=== PATIENT | female | born 1965 | race Caucasian/White ===

== ENCOUNTER 2022-12-29 11:44 | Emergency (ER) | payer MEDICAID ==
[~2022-12-29] VITALS: Ht 160 cm; Wt 74.0 kg
[2022-12-29 11:49] VITALS: BP 172/80
[2022-12-29] MEDS ORDERED: ASPIRIN 81MG TABLET PO ONE (14:30)
[2022-12-29 14:57] LABS: BASOPHILS % 1.1 % (0.0-2.0); EOSINOPHILS % 3.5 % (0.0-5.0); HEMOGLOBIN. 14.8 g/dL (12.0-16.0); LYMPHOCYTES % 24.8 % (20.0-50.0); MEAN CORPUSCULAR VOLUME 90.2 fL (81.0-99.0); MEAN PLATELET VOLUME 8.6 fl (7.4-10.4); MONOCYTES % 7.6 % (2.0-8.0); PLATELET 374 x1000/uL (130-400); RED BLOOD CELL COUNT 4.77 mill/uL (4.2-5.4)
[2022-12-29 15:27] LABS: CHLORIDE 104 mEq/L (98-107)
[2022-12-29] MEDS ORDERED: NITROGLYCERIN OINT 1GM/INCH UDPKT TD ONE (15:30)
[2022-12-29] MEDS ORDERED: NITR0.4T SL (16:09)
[2022-12-29] MEDS ORDERED: ACET-2708 MT (16:09)
== END 2022-12-29 16:30 | disposition home or self-care (01) ==
LOC: ER 11:44
DX: R07.89 Other chest pain (principal); E11.9 Type 2 diabetes mellitus without complications; I10 Essential (primary) hypertension; M54.12 Radiculopathy, cervical region
CPT/HCPCS: 36415; 71045; 80053; 83880; 84484; 85025; 93005; 99285; Z7610

== ENCOUNTER 2024-03-08 15:13 | Emergency (ER) | payer MEDICAID ==
[~2024-03-08] VITALS: Ht 157.5 cm; Wt 66.0 kg
[~2024-03-08 15:13] MED LIST: ACET-2708 MT; NITR0.4T SL
[2024-03-08 15:29] VITALS: TEMP 97.9; O2SAT 100
[2024-03-08 16:07] LABS: BASOPHILS % 0.5 % (0.0-2.0); EOSINOPHILS % 2.8 % (0.0-5.0); HEMATOCRIT. 42.3 % (36.0-48.0); HEMOGLOBIN. 14.7 g/dL (12.0-16.0); LYMPHOCYTES % 8.9 % (20.0-50.0); MEAN CORPUSCULAR HEMOGLOBIN 32.2 pg (28.0-32.0); MEAN CORPUSCULAR HGB CONC 34.7 g/dL (31.0-37.0); MEAN CORPUSCULAR VOLUME 92.8 fL (81.0-99.0); MONOCYTES % 8.5 % (2.0-8.0); NEUTROPHILS % 79.3 % (40.0-76.0); PLATELET 313 x1000/uL (130-400); RED BLOOD CELL COUNT 4.55 mill/uL (4.2-5.4); RED CELL DISTRIBUTION WIDTH 13.2 % (11.6-14.6); WHITE BLOOD COUNT 7.6 x1000/uL (4.5-11.0)
[2024-03-08 16:09] LABS: CHLORIDE 105 mEq/L (98-107); POTASSIUM 3.8 mEq/L (3.5-5.1); SODIUM 138 mEq/L (136-145)
[2024-03-08 16:10] LABS: CALCIUM 9.8 mg/dL (8.7-10.4); CARBON DIOXIDE 26 mEq/L (21-32)
[2024-03-08 16:15] LABS: CREATININE 0.7 mg/dL (0.6-1.0); GLUCOSE 149 mg/dL (70-105); UREA NITROGEN BLOOD 15 mg/dL (9-23)
[2024-03-08 16:17] LABS: ALANINE AMINOTRANSFERASE 141 IU/L (10-49); ASPARTATE AMINOTRANSFERASE 219 IU/L (<34)
[2024-03-08 16:18] LABS: BILIRUBIN TOTAL 0.9 mg/dL (0.1-1.0)
[2024-03-08] MEDS: FAMOTIDINE 20MG TABLET PO ONE (19:02)
[2024-03-08 20:26] LABS: TROPONIN I HIGH SENSITIVITY 5 ng/L (3.0-34)
[2024-03-08] MEDS ORDERED: OMEP20CA14 MT (20:48)
[2024-03-08 21:47] VITALS: BP 138/84; PULSE 80; RESP 18
== END 2024-03-08 21:54 | disposition home or self-care (01) ==
LOC: ER 15:13
DX: K76.0 Fatty (change of) liver, not elsewhere classified (principal); R10.13 Epigastric pain; R74.01 Elevation of levels of liver transaminase levels; E11.9 Type 2 diabetes mellitus without complications; E03.8 Other specified hypothyroidism; Z98.890 Other specified postprocedural states
CPT/HCPCS: 36415; 71045; 76705; 80053; 84484; 85025; 93005; 99285

== ENCOUNTER 2024-04-27 14:00 | Emergency (ER) | payer MEDICAID ==
[~2024-04-27] VITALS: Ht 162.6 cm; Wt 67.5 kg
[~2024-04-27 14:00] MED LIST changes: +OMEP20CA14 MT
[2024-04-27 14:04] VITALS: O2SAT 98
[2024-04-27] MEDS ORDERED: KETOROLAC 30MG/ML VIAL IM ONE (16:30)
[2024-04-27] MEDS: KETOROLAC 30MG/ML VIAL IM NR (18:18)
[2024-04-27 19:35] LABS: CARBON DIOXIDE 26 mEq/L (21-32); CHLORIDE 106 mEq/L (98-107); POTASSIUM 3.9 mEq/L (3.5-5.1); SODIUM 139 mEq/L (136-145)
[2024-04-27 19:36] LABS: HEMATOCRIT. 47.3 % (36.0-48.0); HEMOGLOBIN. 15.9 g/dL (12.0-16.0); LYMPHOCYTES % 19.7 % (20.0-50.0); MEAN CORPUSCULAR HEMOGLOBIN 31.5 pg (28.0-32.0); MEAN CORPUSCULAR HGB CONC 33.6 g/dL (31.0-37.0); MEAN CORPUSCULAR VOLUME 93.8 fL (81.0-99.0); MEAN PLATELET VOLUME 8.5 fl (7.4-10.4); MONOCYTES % 6.3 % (2.0-8.0); PLATELET 332 x1000/uL (130-400); RED BLOOD CELL COUNT 5.04 mill/uL (4.2-5.4); RED CELL DISTRIBUTION WIDTH 13.5 % (11.6-14.6)
[2024-04-27 19:40] LABS: CREATININE 0.7 mg/dL (0.6-1.0)
[2024-04-27 19:41] LABS: GLUCOSE 122 mg/dL (70-105); TROPONIN I HIGH SENSITIVITY 5 ng/L (3.0-34); UREA NITROGEN BLOOD 19 mg/dL (9-23)
[2024-04-27 19:42] LABS: ALANINE AMINOTRANSFERASE 36 IU/L (10-49); ASPARTATE AMINOTRANSFERASE 32 IU/L (<34)
[2024-04-27 19:43] LABS: ALBUMIN 5.2 g/dL (3.2-4.8); BILIRUBIN DIRECT 0.1 mg/dL (<=3.0); BILIRUBIN TOTAL 0.4 mg/dL (0.1-1.0); PROTEIN TOTAL 8.4 g/dL (6.0-8.3)
[2024-04-27] MEDS ORDERED: LIDO700A30 TP (20:12)
[2024-04-27 20:42] VITALS: BP 151/53; PULSE 60; RESP 18; TEMP 98.1
== END 2024-04-27 20:39 | disposition home or self-care (01) ==
LOC: ER 14:00
DX: S20.211A Contusion of right front wall of thorax, initial encounter (principal); E11.9 Type 2 diabetes mellitus without complications; I10 Essential (primary) hypertension; E03.9 Hypothyroidism, unspecified; Z98.890 Other specified postprocedural states; X58.XXXA Exposure to other specified factors, initial encounter; Y93.89 Activity, other specified; Y92.89 Other specified places as the place of occurrence of the external cause; Y99.8 Other external cause status
CPT/HCPCS: 99285; 80076; 80048; 83690; 85025; 84484; 36415; 71101; 93005; 96372; J1885

== ENCOUNTER 2024-06-12 14:27 | Emergency (ER) | payer MEDICAID ==
[~2024-06-12] VITALS: Ht 162.6 cm; Wt 65.0 kg
[~2024-06-12 14:27] MED LIST changes: +LIDO700A30 TP
[2024-06-12 14:37] VITALS: BP 135/80; PULSE 77; RESP 18; TEMP 98; O2SAT 97
[2024-06-12] MEDS: METHYLPREDNISOLONE SOD SUCC 125MG/2ML (ACT-O-VIAL) IM ONE (18:18)
[2024-06-12] MEDS: DIPHENHYDRAMINE 25MG CAPSULE PO ONE (18:18)
[2024-06-12] MEDS ORDERED: P20 MT (18:22)
[2024-06-12] MEDS ORDERED: DIPH25TA62 PO (18:22)
== END 2024-06-12 19:08 | disposition home or self-care (01) ==
LOC: ER 14:40
DX: L50.9 Urticaria, unspecified (principal); E11.9 Type 2 diabetes mellitus without complications; I10 Essential (primary) hypertension; E03.9 Hypothyroidism, unspecified; Z98.890 Other specified postprocedural states; Z79.899 Other long term (current) drug therapy
CPT/HCPCS: 99283; 96372; Q0163; J2919